=== PATIENT | male | born 1970 | race Caucasian/White ===

== ENCOUNTER 2019-06-27 05:37 | Day surgery (SDC) | payer OTHER ==
[2019-06-27] VITALS (12 sets, daily range): BP systolic 106–133; BP diastolic 66–85; PULSE 66–80; RESP 12–22; Ht 180.3 cm; Wt 132.1 kg
[~2019-06-27] VITALS: Ht 180.3 cm; Wt 132.1 kg
[~2019-06-27 05:37] MED LIST: ALLO300T84 PO; ATOR20TA38 PO; CITA20TA8 PO
[2019-06-27] MEDS ORDERED: LACTATED RINGER'S 1,000 ML IV SCH (06:30)
[2019-06-27] MEDS ORDERED: GELATIN SIZE 100 SPONGE ONE (06:54)
[2019-06-27] MEDS ORDERED: POLYMYXIN/BACITRACIN 1L IRRIG ONE (06:54)
[2019-06-27] MEDS ORDERED: THROMBIN 5000 UNIT (RECOTHROM) VIAL ONE (06:54)
--- NOTE | 2019-06-27 07:05 | PREAC ---
Date/Time of Note Date/Time of Note DATE: 06/27/19 TIME: 07:02 Anesthesia Eval and Record Evaluation Time Pre-Procedure Interview DATE: 06/27/19 TIME: 07:02 Age 48 Sex male NPO: 8 hrs Preoperative diagnosis Right foot arthritis, flat foot, hallux valgus Planned procedure Reconstructive flat foot surgery with talonavicular cuneiform fusion, subtalar joint fusion, medial calcaneal slide osteotomy, Achilles tendon lengthening, forefoot varus correction, possible staged surgery Past Medical History Past Medical History: Includes Cardio: Dyslipidemia Endo: Other GI: Morbid obesity Psych: Depression Surgery & Anesthesia Issues No known issue Meds Anticoagulation: No Beta Jarred within 24 hr: No Reason Beta Jarred not given: Pt. not on B-Jarred Reported Medications Atorvastatin Calcium* (Atorvastatin Calcium*) 20 Mg Tablet, 20 MG PO QHS, #30 TAB 06/27/19 Citalopram Hydrobromide* (Citalopram Hydrobromide*) 20 Mg Tablet, 20 MG PO DAILY, #30 TAB 06/27/19 Allopurinol* (Zyloprim*) 300 Mg Tablet, 300 MG PO DAILY, TAB 06/27/19 Current Medications Lactated Ringer's 1,000 ml @ 25 mls/hr Q24H IV Last administered on 06/27/19at 06:41; Admin Dose 25 MLS/HR; Start 06/27/19 at 06:30 Meds reviewed: Yes Allergies Coded Allergies: No Known Drug Allergies (Verified Allergy, Unknown, 06/27/19) Allergies Reviewed: Yes Labs/Studies Labs Reviewed: Reviewed by anesthesiologist test: N/A Pre-procedure Exam Last vitals Vital Signs Date Temp Pulse Resp B/P (MAP) Pulse Ox O2 O2 Flow FiO2 Time Delivery Rate 06/27/19 97.9 80 16 132/83 96 Room Air 06:26 (99) Airway: Adequate mouth opening Mallampati: Mallampati II Teeth: Normal Lung: Normal Heart: Normal ASA Physical Status ASA physical status: 3 Emergency: None Planned Anesthetic General/MAC: ETT, LMA Planned Pain Management Single shot nerve block, Parenteral pain med Pre-operative Attestations Prior to commencing anesthesia and surgery, the patient was re-evaluated, there was verification of: *The patient's identity *The results of appropriate recent lab work and preoperative vital signs *The above evaluation not changing prior to induction *Anesthetic plan, risk benefits, alternative and complications discussed with patient/family; questions answered; patient/family understands, accepts and wishes to proceed. HEBER HOWE MD Jun 27, 2019 07:05
[2019-06-27] MEDS ORDERED: BUPIVACAINE 0.5% (SDV) 30 ML INJ ONE ×2 (07:24→10:46)
[2019-06-27] MEDS ORDERED: BUPIVACAINE 0.25% (MPF) 30 ML INJ ONE (07:24)
--- NOTE | 2019-06-27 07:59 | HPN ---
Date/Time of Note Date/Time of Note DATE: 06/27/19 TIME: 07:59 Interval H&P Admission Note Pt. seen H&P reviewed: No system changes IFTIKHAR SMITH DPM Jun 27, 2019 07:59
[2019-06-27] MEDS ORDERED: CEFAZOLIN 2 GM/50 ML (PMX) 50 ML IVPB SCH (08:00)
[2019-06-27] MEDS ORDERED: HYDROmorphONE 1 MG/5 ML IV SYRINGE IV PRN ×2 (08:30)
[2019-06-27] MEDS ORDERED: METOCLOPRAMIDE 10 MG INJ IV PRN (08:30)
[2019-06-27] MEDS ORDERED: MEPERIDINE 25 MG INJ IV PRN (08:30)
[2019-06-27] MEDS ORDERED: EPHEDrine 25 MG/5 ML SYG IV PRN (08:30)
[2019-06-27] MEDS ORDERED: DIPHENHYDRAMINE 50 MG INJ IV PRN (08:30)
[2019-06-27] MEDS ORDERED: MIDAZOLAM 1 MG/ML 2 ML INJ IV PRN (08:30)
[2019-06-27] MEDS ORDERED: FENTAnyl 50 MCG/ML VIAL IV PRN ×3 (08:30)
[2019-06-27] MEDS ORDERED: ONDANSETRON 4 MG INJ IV PRN (08:30)
[2019-06-27] MEDS ORDERED: hydrALAzine 20 MG INJ IV PRN (08:30)
[2019-06-27] MEDS ORDERED: LABETALOL HCL 20MG INJ IV PRN (08:30)
[2019-06-27] MEDS ORDERED: ROPIVACAINE 0.5 % 30 ML VIAL ONE (10:46)
[2019-06-27] MEDS ORDERED: ONDANSETRON 4 MG INJ ONE (10:46)
[2019-06-27] MEDS ORDERED: LIDOCAINE 2% (SDV) 5 ML INJ ONE (10:46)
[2019-06-27] MEDS ORDERED: PROPOFOL 20 ML ONE (10:46)
[2019-06-27] MEDS ORDERED: CEFAZOLIN 1 GM INJ ONE (10:46)
[2019-06-27] MEDS ORDERED: EPHEDrine 25 MG/5 ML SYG ONE (10:46)
[2019-06-27] MEDS ORDERED: MIDAZOLAM 1 MG/ML 2 ML INJ ONE (10:49)
[2019-06-27] MEDS ORDERED: FENTAnyl 50 MCG/ML VIAL ONE (10:51)
[2019-06-27] MEDS ORDERED: HYDROGEN PEROXIDE 118 ML ONE (12:21)
--- NOTE | 2019-06-27 12:52 | SIPON ---
Date/Time of Note Date/Time of Note DATE: 06/27/19 TIME: 12:48 Operative Report Preoperative Diagnosis Severe flexible right flatfoot deformity Gait disturbance secondary to severe flatfoot deformity Right foot pain Right midfoot arthritis Moderate obesity Postoperative Diagnosis Severe flexible right flatfoot deformity Gait disturbance secondary to severe flatfoot deformity Deltoid ligament rupture Right foot pain Right midfoot arthritis Moderate obesity Operation/Procedure Performed Talonavicular joint fusion right foot Naviculocuneiform joint fusion right foot First metatarsal cuneiform fusion right foot Calcaneal medial slide osteotomy Use of bone graft Intraoperative use and interpretation of fluoroscopy Application of posterior splint right lower extremity Surgeon see signature line assistant sales manager None Anesthesia: general Estimated blood loss: 10 - 50 ml's Transfusion Required none Specimen None Grafts/Implants none Complications none IFTIKHAR SMITH DPM Jun 27, 2019 12:52
--- NOTE | 2019-06-27 12:54 | OPR ---
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 Right foot pain Morbid obesity Operation/Procedure Performed Talonavicular joint fusion right foot Naviculocuneiform joint fusion right foot First metatarsal cuneiform fusion right foot Calcaneal medial slide osteotomy Use of bone graft Intraoperative use and interpretation of fluoroscopy Application of posterior splint right lower extremity Surgeon see signature line Rectifying Operator None Anesthesia Type: general Estimated Blood Loss: 10 - 50 ml's Transfusion none Specimen None Grafts/Implants none Complications none Pt Condition Post Procedure: stable Disposition: PACU Indications This is a pleasant 48-year-old male patient who has been suffering with severe right flatfoot deformity, some flexible with excessive heel valgus and subtalar joint pronation along with significant pain on weightbearing and range of motion examination. Detailed discussion was done with patient regarding his condition. Recommended procedure was reconstruction of his severe right flexible flatfoot with multiple procedures with possible staged procedure. Risks and co mplications of this type of surgery was discussed with patient in great detail. Risks and complications discussed include, but are not limited to, postoperative infection, postoperative pain, chronic pain and disability, hardware failure, malunion, nonunion, delayed union, failure of surgery to correct the problem, need for additional surgical procedures, toenail changes, onychomycosis, deep venous thrombosis, gait disturbance, problems with shoegear, limitation of activities, limb loss and loss of life. Patient understands the discussion and agrees to the procedure. An informed consent was obtained, signed and placed in the chart. No guarantee or warrantee was given or implied as to the outcome of the procedure either in verbal or written form. Procedure Description The patient was seen in the preoperative area. Proposed surgery was discussed with patient in great detail. Opportunity was given to patient asked questions and all questions were answered. Patient acknowledges understanding of the discussion and agrees to the procedure. The patient was then taken to the operating room and was placed on the operating table in the supine position. A thigh tourniquet was applied to the right thigh. Patient was placed under general anesthesia. A 10 pound bag was placed under the right hip to rotate the foot more rectus. A timeout was called by the circulating nurse and everyone in the operating room agreed. The right lower extremity was then scrubbed, prepped and draped in the usual aseptic manner. An Esmarch bandage was utilized to exsanguinate the right lower extremity and the thigh tourniquet was inflated to 300 mmHg pressure. Attention was directed to the right rear foot. Intraoperative fluoroscopic imaging was obtained and incision planning was done. The incisions were marked using a sterile skin marker. Procedure: Right calcaneal medial slide osteotomy I made a small 1.5 cm incision over the sinus Tarsi area. Blunt dissection was made into the sinus Tarsi. A guidewire was placed into the sinus Tarsi from the lateral to medial using fluoroscopy for guidance. I attempted to insert a subtalar joint arthroereisis implant but the patient's anatomy was not amenable to the implant and therefore the implant was removed. Attention was then directed to the lateral right heel area. Patient was found to have a severe subtalar joint pronation and heel valgus. A 4 cm incision was made using a #10 blade. Dissection was made carefully to the periosteal layer with care being taken to identify and protect vital neurovascular structures. Bleeders were cauterized as necessary. A 1 inch straight osteotome was inserted and the posterior aspect of the calcaneus was targeted for the osteotomy. The osteotomy was made using osteotome and mallet with use of intraoperative fluoroscopic guidance. Soft tissue attachments of the posterior fragment calcaneus was released partially in order to be able to mobilize the posterior fragment. I utilized a small laminar commercial real estate attorney and the posterior fra gment from the remaining portion of the calcaneus and then I was able to translate the posterior fragment medially about 1.5 cm. This position was held with temporary K wire. Next, I inserted 2 7.0 cannulated headless screws in crisscross fashion for fixation. This was done under direct visualization using intraoperative fluoroscopy. Both the lateral and a calcaneal axial image was obtained and the medial translation was successful. Medial column fusion including the following procedures: 1. Talonavicular joint fusion 2. Navicular cuneiform joint fusion 3. First metatarsal cuneiform joint fusion Attention was next directed to the medial rear foot area. Patient was found to have significant bulging of the medial malleolar area with the forefoot loaded and severe subtalar joint pronation. A 9 cm incision was made on the medial aspect of the right foot using a #10 blade. Bleeders were cauterized as necessary. Dissection was deepened through the subcutaneous layer all the way to the periosteum using sharp and blunt dissection with care being taken to identify and protect vital neurovascular structures. I then went ahead and exposed the talonavicular joint, navicular cuneiform joint, cuneiform first metatarsal joint. I also exposed the spring ligament which was found to have intrasubstance tear and attenuation of the central portion of the ligament which would explain the excessive bulging of the medial malleolus and medial arch on weightbearing. The articular surfaces of the talonavicular, naviculocuneiform, first metatarsal cuneiform joints were all denuded of cartilage using osteotome and mallet along with curette and fenestration of bone using a 2.0 drill bit. First, the talonavicular joint was realigned and fixated with a temporary 0.062 K wire using intraoperative fluoroscopic guidance. Once this joint was realigned, I went ahead and reduced the sagittal sagging at the naviculocuneiform joint and brought those 2 bones in near anatomical position aligned with the talonavicular joint. Next, a medial column fusion plate from [employer] was selected. Using intraoperative fluoroscopic technique and guidance, these 2 joints and 3 bones were fused together. Bone graft was applied. Next, the first metatarsocuneiform joint was checked and was found to be elevated. The first metatarsal bone was then lowered and then fixated to the medial cuneiform using 2 kimberly with compression. All wounds were then flushed with copious amounts of sterile normal saline. Attention was next taken to the spring ligament. I evaluate the ligament and there were several spots of attenuation and a 1 cm rupture through the ligament. This ligament was primarily repaired using 2-0 Ethibond suture and the ligament was shortened with imbricating the ligament onto itself. At this point, the foot was analyzed and the correction was evaluated. Patient no longer had excessive subtalar joint pronation and there was no further medial bulging of the medial malleolus and medial arch area on the forefoot loaded. The position of the calcaneus was reduced from the excessive valgus position into a more rectus position. The medial arch was reestablished. Intraoperative fluoroscopic pictures were obtained and position of the joint fusion along with a heart replacement was evaluated. I decided this point not to continue with further surgical management to see if patient may recover with this correction. I evaluate the Achilles tendon and seemed that patient was able to get to 5 degrees of dorsiflexion on the table without need for lengthening at this time. Subtalar joint motion is obviously limited with the medial column fusion therefore no fusion of the subtalar joint was deemed necessary at this time. Postoperatively and through physical therapy, if patient continues to have pain specific to the subtalar joint and/or if he develops equinus or difficulty with dorsiflexion of the foot, second surgery may be necessary for tendo Achilles lengthening and possible subtalar joint fusion. All wounds were flushed with copious amounts of sterile normal saline. The spring ligament was reapproximated using 2-0 Vicryl suture. The subcutaneous layer was closed using 3-0 Vicryl suture and the skin was closed using 4-0 Monocryl in subcuticular stitch pattern. Posterior small incisions on the heel that were made for insertion of the cannulated screws were closed using kimberly. The incision that was made for the subtalar joint implant was closed using 4-0 Monocryl sutures subcuticular stitch pattern. Throughout this case I deflated the thigh tourniquet once and reinflated after 20 minutes of perfusion in order to achieve hemostasis. All bleeders were cauterized as necessary. Sterile dressing was applied to the right foot. I applied to posterior splints to the right lower extremity. The thigh tourniquet was deflated at this time and prompt hyperemic response was noted to digits of the right foot. The patient tolerated the procedure and anesthesia well. He was transferred to the recovery with vital signs stable and vascular status intact to the right lower extremity. The patient will remain nonweightbearing on the right lower extremity. Postoperative orders have been written. The patient will be seen in my office in 1 week. Patient has had a popliteal and saphenous block by the anesthesiologist prior to the case and will be eval for pain control in the recovery room. When asked, patient reported no pain in his right lower extremity. Pain medication will be submitted electronically to his pharmacy for postop pain management. IFTIKHAR SMITH DPM Jun 27, 2019 12:54
[2019-06-27] MEDS: HYDROmorphONE 1 MG/5 ML IV SYRINGE IV PRN ×2 (12:59→13:07)
--- NOTE | 2019-06-27 13:39 | PAC ---
Date/Time of Note Date/Time of Note DATE: 06/27/19 TIME: 13:39 Post-Anesthesia Notes Post-Anesthesia Note Last documented vital signs Vital Signs Date Temp Pulse Resp B/P (MAP) Pulse Ox O2 O2 Flow FiO2 Time Delivery Rate 06/27/19 72 15 129/79 97 Room Air 13:26 (96) 06/27/19 2.0 13:11 06/27/19 98.6 12:51 Activity: WNL Respiratory function: WNL Cardiovascular function: WNL Mental status: Baseline Pain reasonably controlled: Yes Hydration appropriate: Yes Nausea/Vomiting absent: Yes Comments BT: 98.4 HEBER HOWE MD Jun 27, 2019 13:39
== END 2019-06-27 14:40 | disposition home or self-care (01) ==
LOC: SDS 05:37
PROVIDERS: ATTEND Podiatrist Foot & Ankle Surgery
DX: M21.071 Valgus deformity, not elsewhere classified, right ankle (principal); M21.41 Flat foot [pes planus] (acquired), right foot; E66.01 Morbid (severe) obesity due to excess calories; Z68.41 Body mass index [BMI] 40.0-44.9, adult
CPT/HCPCS: 28737; 28740; 73630; 88304; C1713; J0690; J1170; J2250; J2405; J2765; J2795; J3010